=== PATIENT | female | born 1980 | race African-American/Black ===

== ENCOUNTER 2018-12-23 09:28 | Emergency (ER) | payer OTHER ==
[~2018-12-23] VITALS: Ht 154.9 cm; Wt 104.3 kg
[2018-12-23] MEDS ORDERED: VENTOLIN HFA 1818 GM INH (09:33)
[2018-12-23] MEDS ORDERED: MOBIC15 MG PO (12:19)
[2018-12-23 13:00] VITALS: BP 114/65
== END 2018-12-23 12:54 | disposition home or self-care (01) ==
LOC: ER 09:28
DX: M72.2 Plantar fascial fibromatosis (principal); J45.909 Unspecified asthma, uncomplicated; M10.9 Gout, unspecified; F17.210 Nicotine dependence, cigarettes, uncomplicated